=== PATIENT | female | born 2000 | race Caucasian/White ===

== ENCOUNTER → 2025-02-14 09:50 | Outpatient (BNV) | payer OTHER, SELFPAY ==
--- NOTE | 2025-02-14 09:50 | A.OFFVIS_ITS ---
Intake Visit Reasons: Amb Documentation Allergies No Known Allergies Allergy (Verified 02/14/25 10:12) HPI Comments Details: student is coming in because she's been off depo for 1.5 years. she would like to go back on it but isn't in a hurry. she has a regular partner (the baby's father). He uses withdrawal and this has worked for them, so she refuses plan b (last had sex 'maybe' last night)...she states that they have sex 'not often' and is ok waiting for her period but Azalia her counselor will try and see if this can happen sooner so I will put the rx and the blood test order in She has no PCP (baby goes to [facility]) and goes to for delivery and ob-care - this is also an option to have azalia work to get her seen there for this first shot since this office may be closed for 2 weeks. she has no allergies and no significant medical history FMH: she is unclear why wasn't raised by her mother but by her [facility] [place] [place] w/ her baby. [facility] [place] health - diabetes and arthritis has a brother and a sister in good health, parents helath is unknown - 2 year old daughter is in good health No etoh, no cig, smokes cannabis for sleep most nights INSURANCE - she was put on alyson by [employer] and [facility]cu to find a provider in this area - azalia will work w/ her to change insurance and find pcp in this area - suggested [facility] Medical History Not proficient in Sudanese language History of unprotected sex Family History (Updated 02/14/25 @ 09:58 by DANG Triplett) Mother Family history unknown Father Family history unknown Maternal Grandmother Diabetes Arthritis Sister No problems noted. Brother No problems noted. Daughter No problems noted. Review of Systems Const Details: Counseling visit: All systems reviewed & are unremarkable except as noted in HPI and below Reports as per HPI Resp Reports as per HPI GI Reports as per HPI Musc Reports as per HPI Neuro Reports as per HPI Psych Reports as per HPI Physical Exam Const General: cooperative, healthy appearing and no acute distress Nutritional Appearance: well nourished Orientation/consciousness: oriented to person Limitations: no limitations HEENT Other: wnl Eyes Other: wnl Chest Other: easy breathing Resp Effort & Inspection: able to speak in complete sentences Skin Other: normal in appearance Neuro General: oriented to person Psych Other: see HPI Mental Status: mental status grossly normal Speech and movement: Clear speech present Attitude: cooperative Thought process: Normal thought process present Assessment & Plan Assessment & Plan (1) History of unprotected sex: Code(s): Z72.51 - High risk heterosexual behavior Category: Social Hx (2) control counseling: Code(s): Z30.09 - Encounter for other general counseling and advice on contraception Category: Medical (3) Counseling and coordination of care: Code(s): Z71.89 - Other specified counseling Category: Medical (4) Not proficient in Sudanese language: Code(s): Z78.9 - Other specified health status Category: Social Hx Plan onsite counselor will help client change [facility] to something locally accepted and will help her get to primary care. she will get blood test done and help her bean picker machine operator depo and will either have the covering nurse practitoner administer or will arrange for her to get this done Orders: Orders HCG Quantitative Today Z72.51 - High risk heterosexual behavior Medications: New medroxyprogesterone (Depo-Provera) 150 mg IM [id number] 1 mL 6RF Coding Level of Care Code New Pt Level 5 (97354) Diagnoses History of unprotected sex Z72.51 control counseling Z30. Counseling and coordination of care Z71.89 Not proficient in Sudanese language Z78.9 Additional Codes PHQ-9 - 02911 - PHQ-9 Billing: Yes ([id number]) Time Spent (min) 65 Comment extensive counseling and coord of care w/ onsite counselor CRAFFT Screening Tool PART A: In the PAST 12 MONTHS, did you: Drink any alcohol (more than few sips)? (Do not count sips of alcohol taken during family or taoist events.): No Smoke any marijuana or hashish?: No Use anything else to get high? (includes illegal drugs, over the counter/prescription drugs, or things that you sniff/bojorquez?): No PHQ-9 Over the last 2 weeks, how often have you been bothered by any of the following problems? 1. Little interest or pleasure in doing things: not at all 2. Feeling down, depressed, or hopeless: not at all 3. Trouble falling or staying asleep, or sleeping too much: not at all 4. Feeling tired or having little energy: several days 5. Poor appetite or overeating: not at all 6. Feeling bad about yourself - or that you are a failure or have let yourself or your family down: not at all 7. Trouble concentrating on things, such as reading the newspaper or watching television: not at all 8. Moving or speaking so slowly that other people could have noticed. Or the opposite - being so fidgety or restless that you have been moving around a lot more than usual: not at all 9. Thoughts that you would be better off or of hurting yourself in some way: not at all Total score: 1 Depression Screening Interpretation: Negative Depression Screening Done: Yes 47369 - PHQ-9 Billing: Yes Source: Developed by Drs. Joe Dacosta, Delmis Campbell, Jacob Ontiveros and colleagues, with an educational familia from [employer]
== END ==
PROVIDERS: PCP Pediatrics; Visit Provider Nurse Practitioner Family
DX: Z72.51 High risk heterosexual behavior (principal); Z30.09 Encounter for other general counseling and advice on contraception; Z71.89 Other specified counseling; Z78.9 Other specified health status
CPT/HCPCS: 96127; 99205

== ENCOUNTER 2025-03-01 12:07 | Outpatient (REF) | payer OTHER, SELFPAY ==
--- OUTSIDE RECORDS SUMMARY | 2025-03-01 13:09 | XMS_ITS | Clinical Summary ---
Author Organization [facility] Address [address] [place] [id number] Phone Care Team Providers Care Museum Exhibit Technician Name Role Phone Loli Jackson MD Primary Care Provider Unavailabl e Immunizations Immunization Administration Dates Next Due DTaP 5 02/22/2007, 4,01/26/2003,2002, 3 Hep B, ped/adol 05/04/2003,01/26/2003,2002 Hib (PRP-T) 11/22/2003,01/26/2003,2002 ,2002 IPV 02/22/2007,05/04/2003,2002 ,2002 MMR 02/22/2007,09/11/2003 Pneumococcal Conjugate 07/31/2004,01/26/2003,11/2002,2002 Varicella 03/31/2007,09/11/2003 Social History Tobacco Use Types Packs/Day Years Used Date Smoking Tobacco: Never Assessed Comments Unknown Sex and Gender Information Value Date Recorded Sex Assigned at Not on file Legal Sex Female 4:25 PM EDT Gender Identity Not on file Sexual Orientation Not on file Plan of Treatment Health Maintenance Due Date Last Done Comments DTaP,Tdap,and Td Vaccines (6 - Tdap) 2013 02/22/2007, 02/20/2004, 01/26/2003, Additional history exists HPV Vaccines (1 - 3-dose series) 2017 Men B Vaccine (1 of 2 - Standard) 2018 COVID-19 Vaccine (1 - 2023- season) 2024 Influenza Vaccines (#1) 2025 Hepatitis B Vaccines Completed 05/04/2003, 01/26/2003, 2002 HIB Vaccines Completed 11/22/2003, 01/03, 2002, Additional history exists Pneumococcal Vaccine Completed 07/31/2004, 01/26/2003, 2002, Additional history exists IPV Vaccines Completed 02/22/2007, 04/06, 2002, Additional history exists MMR Vaccines Completed 02/22/2007, 09/11/2003 Varicella Vaccines Completed 03/31/2007, 09/11/2003 Hepatitis A Vaccines Aged Out No long er eligible based on patient's age to complete this topic Meningococcal Vaccine Aged Out No savannah david eligible based on patient's age to complete this topic Care Teams Museum Exhibit Technician Relationship Specialty Start Date End Date Loli Jackson MD PCP - General 02/12/17
--- OUTSIDE RECORDS SUMMARY | 2025-03-01 13:09 | XMS_ITS | Encounter Summary ---
Author Organization [facility] Address [address] [place] [address] Phone Care Team Providers Care Truck Farmer Name Role Phone Loli Jackson MD Primary Care Provider Unavailabl e Encounter Details Date Type Department Care Team (Late st Contact Info) Description 02/18/2017 Conversion Encounter [facility] - [address] [address] Social History Tobacco Use Types Packs/Day Years Used Date Smoking Tobacco: Never Assessed Comments Unknown Sex and Gender Information Value Date Recorded Sex Assigned at Not on file Legal Sex Female 4:25 PM EDT Gender Identity Not on file Sexual Orientation Not on file documented as of this encounter Plan of Treatment Not on file documented as of this encounter Visit Diagnoses Not on filedocumented in this encounter Care Teams Truck Farmer Relationship Specialty Start Date End Date Loli Jackson MD PCP - General 02/12/17 documented as of this encounter
== END 2025-03-01 12:08 | disposition home or self-care (01) ==
LOC: HO.LAB 12:07
PROVIDERS: Visit Provider Nurse Practitioner Family
DX: Z72.51 High risk heterosexual behavior (principal)
CPT/HCPCS: 36415; 84702

== ENCOUNTER → 2025-03-07 09:10 | Outpatient (BNV) | payer OTHER, SELFPAY ==
--- NOTE | 2025-03-07 09:29 | MHC.OFFVIS ---
Intake Visit Reasons: Amb Documentation Allergies No Known Allergies Allergy (Verified 02/14/25 10:12) HPI Comments Details: student states had blood test done before weekend - (depo not picked up - misunderstanding). blood test is negative, she is happy to hear. alina calvo (counselor) went and picked up depo and it was administered by this provider. negative urine test and states no sex since she last saw this provider, but urine test was done to be sure story was fully accurate. depo administered in left deltoid w/o problem. reviewed protection for 1 week (not on period and had no period since she was checked previously). she is very anxious to prevent . DEPO [id number], STEFFANY [id number] left deltoid due 05/24/25 told her november go to alina to start the whole process again so can avoid blood test alina informed as well [facility] Medical History Family planning, Depo-Provera contraception monitoring/administration Not proficient in Icelandic language History of unprotected sex Family History Mother Family history unknown Father Family history unknown Maternal Grandmother Diabetes Arthritis Sister No problems noted. Brother No problems noted. Daughter No problems noted. Review of Systems Const Details: Counseling visit: All systems reviewed & are unremarkable except as noted in HPI and below Reports as per HPI Resp Reports as per HPI GI Reports as per HPI Musc Reports as per HPI Neuro Reports as per HPI Psych Reports as per HPI Physical Exam Const General: cooperative, healthy appearing and no acute distress Nutritional Appearance: well nourished Orientation/consciousness: oriented to person Limitations: no limitations HEENT Other: wnl Eyes Other: wnl Chest Other: easy breathing Resp Effort & Inspection: able to speak in complete sentences Skin Other: normal in appearance Neuro General: oriented to person Psych Other: see HPI Appearance: grossly normal Mental Status: mental status grossly normal Speech and movement: Clear speech present Attitude: cooperative Thought process: Normal thought process present Assessment & Plan Assessment & Plan (1) Irregular menses: Code(s): N92.6 - Irregular menstruation, unspecified Category: Medical (2) Family planning, Depo-Provera contraception monitoring/administration: Code(s): Z30.42 - Encounter for surveillance of injectable contraceptive Category: Medical (3) Not proficient in Icelandic language: Code(s): Z78.9 - Other specified health status Category: Social Hx (4) Counseling and coordination of care: Code(s): Z71.89 - Other specified counseling Category: Medical (5) control counseling: Code(s): Z30.09 - Encounter for other general counseling and advice on contraception Category: Medical Plan depo administered see hpi, counselor informed about refill and will help her stay on top of it Orders: Orders AMB HCG Urine Test Today N92.6 - Irregular menstruation, unspecified, Z32.02 - Encounter for test, result negative Coding Level of Care Code Est Pt Level 3 (27713) Diagnoses Irregular menses N92.6 Family planning, Depo-Provera contraception monitoring/administration Z30.42 Not proficient in Icelandic language Z78.9 Counseling and coordination of care Z71.89 control counseling Z30.09 Time Spent (min) 35 Comment counseling/coord care
== END ==
PROVIDERS: PCP Pediatrics; Visit Provider Nurse Practitioner Family
DX: N92.6 Irregular menstruation, unspecified (principal); Z30.42 Encounter for surveillance of injectable contraceptive; Z78.9 Other specified health status; Z71.89 Other specified counseling; Z30.09 Encounter for other general counseling and advice on contraception
CPT/HCPCS: 99213

== ENCOUNTER 2025-03-15 09:34 | Outpatient (AMB) | payer OTHER, SELFPAY ==
--- NOTE | 2025-03-15 09:50 | A.OFFPC_ITS ---
Vital Signs 03/15/25 09:51 Height 5 ft 1.81 in Weight 115 lb 4 oz BMI 21.2 BP 110/68 Blood Pressure Location Rt brachial Position Sitting Pulse 74 Pulse Source Pulse Oximeter Temp 97.1 F Temp Source Temporal Artery Scan Pulse Oximetry (%) 92 Oxygen Delivery Method Room Air Intake Visit Reasons: PHYSICAL NEW PATIENT Intake Note: Patient is a new patient here to establish care for Wellness visit. Transferring care from [facility]. Medical records have been requested and have not received. Publisher Assistant Required: No Securities Adviser: Not Required per policy Accompanied by: Self / Same As Patient Allergies No Known Allergies Allergy (Verified 03/15/25 09:51) Medication List - Last Reconciled 03/15/25 by Katie Henley MD medroxyprogesterone (Depo-Provera) 150 mg IM [id number] Tobacco use date assessed: 03/15/25 Dental Screening Dental Screen Date: 03/15/25 Did you have a dental visit in the last 12 months?: Yes Did you have a dental problem in the last 6 months where you did not have access to dental care?: No Was dental information given to patient?: Patient has dentist HPI HPI Comments History of Present Illness Details The patient is a 24-year-old female presenting with a routine check-up and preventative care. She reports no current symptoms such as dyspnea, chest pain, headaches, abdominal pain, or changes in bowel or urinary habits. The patient has been using Depo-Provera as a contraceptive method. In 2021, the patient experienced a infection following the of her child, which was treated with antibiotics. She reports no ongoing symptoms or complications from this infection. The patient occasionally uses marijuana to aid sleep but denies any dependency or use of other substances. She does not consume alcohol. [facility] Medical History Family planning, Depo-Provera contraception monitoring/administration Not proficient in Maori language History of unprotected sex Surgical History (Updated 03/15/25 @ 09:56 by ANNE Wu) No pertinent past surgical history Family History (Updated 03/15/25 @ 09:50 by ANNE Wu) Mother Family history unknown Father Family history unknown Maternal Grandmother Diabetes Arthritis Sister No problems noted. Brother No problems noted. Daughter No problems noted. Social History (Updated 03/15/25 @ 09:50 by ALFA Wu Housing: Apartment Alcohol intake: never Patient Tobacco Use Status: Never used Tobacco e-Cigarette/Vaping Use: Never Used Second Hand Smoke Exposure: No service: No Current occupational status: student Cognitive needs: No Hearing needs: No Vision needs: No Questionnaire PHQ-9 Over the last 2 weeks, how often have you been bothered by any of the following problems? 1. Little interest or pleasure in doing things: not at all 2. Feeling down, depressed, or hopeless: not at all 3. Trouble falling or staying asleep, or sleeping too much: not at all 4. Feeling tired or having little energy: not at all 5. Poor appetite or overeating: not at all 6. Feeling bad about yourself - or that you are a failure or have let yourself or your family down: not at all 7. Trouble concentrating on things, such as reading the newspaper or watching television: not at all 8. Moving or speaking so slowly that other people could have noticed. Or the opposite - being so fidgety or restless that you have been moving around a lot more than usual: not at all 9. Thoughts that you would be better off or of hurting yourself in some way: not at all Total score: 0 Depression Screening Interpretation: Negative Depression Screening Done: Yes Source: Developed by Drs. Joe Dacosta, Delmis Campbell, Jacob Ontiveros and colleagues, with an educational familia from [employer]. Thrive Questionnaire Date Thrive assessed: 03/15/25 I am a: Patient What is your living situation today?: I have a steady place to live Within the past 12 months, did the food you bought not last and you didn't have the money to get more?: Never true Within the past 12 months, did you worry whether your food would run out before you got money to buy more?: Never true Do you have trouble paying for medicines?: No Do you have trouble getting transportation to medical appointments?: No Do you have trouble paying your heating and electricity bill?: No Do you have trouble taking care of your child, family member or friend?: No Do you have trouble with day-to-day activities such as bathing, preparing meals, shopping, managing finances, etc.?: No Are you currently unemployed and looking for a job?: No Are you interested in more education?: No Please select the resources that you would like help with: None Currently or been in a relationship where the following occur: No concerns reported THRIVE Score: 0 AUDIT C Alcohol Use Questionnaire (AUDIT-C) 1. How often do you have a drink containing alcohol?: Never Total Score: 0 FADIA-7 AMB Questionnaire FADIA-7 Date FADIA - 7 assessed: 03/15/25 Feeling nervous, anxious, or on edge: 0 = Not at all Not being able to stop or control worryin = Not at all Worrying too much about different things: 0 = Not at all Trouble relaxin = Not at all Being so restless that it is hard to sit still: 0 = Not at all Becoming easily annoyed or irritable: 0 = Not at all Feeling afraid as if something awful might happen: 0 = Not at all Total FADIA-7 score (0-4 normal; 5-9 mild; 10-14 moderate; 15-21 severe): 0 Source: Developed by Drs. Joe Dacosta, Delmis Campbell, Jacob Ontiveros and colleagues, with an educational familia from [employer]. Review of Systems Const Details: Positives besides what was mentioned in HPI are in BOLD Constitutional: No Weight Change, No Fever, No Chills, No Night Sweats, No Fatigue, No Malaise ENT/Mouth: No Hearing Changes, No Ear Pain, No Nasal Congestion, No Sinus Pain, No Hoarseness, No sore throat, No Rhinorrhea, No Swallowing Difficulty Eyes: No Eye Pain, No Swelling, No Redness, No Foreign Body, No Discharge, No Vision Changes Cardiovascular: No Chest Pain, No SOB, No PND, No Dyspnea on Exertion, No Orthopnea, No Claudication, No Edema, No Palpitations Respiratory: No Cough, No Sputum, No Wheezing, No Smoke Exposure, No Dyspnea Gastrointestinal: No Nausea, No Vomiting, No Diarrhea, No Constipation, No Pain, No Heartburn, No Anorexia, No Dysphagia, No Hematochezia, No Melena, No Flatulence, No Jaundice Genitourinary: No Dysmenorrhea, No DUB, No Dyspareunia, No Dysuria, No Urinary Frequency, No Hematuria, No Urinary Incontinence, No Urgency, No Flank Pain, No Urinary Flow Changes, No Hesitancy Musculoskeletal: No Arthralgias, No Myalgias, No Joint Swelling, No Joint Stiffness, No Back Pain, No Neck Pain, No Injury History Skin: No Skin Lesions, No Pruritis, No Hair Changes, No Breast/Skin Changes, No Nipple Discharge Neuro: No Weakness, No Numbness, No Paresthesias, No Loss of Consciousness, No Syncope, No Dizziness, No Headache, No Coordination Changes, No Recent Falls Psych: No Anxiety/Panic, No Depression, No Insomnia, No Personality Changes, No Delusions, No Rumination, No SI/HI/AH/VH, No Social Issues, No Memory Changes, No Violence/Abuse Hx., No Eating Concerns Heme/Lymph: No Bruising, No Bleeding, No Transfusions History, No Lymphadenopathy Endocrine: No Polyuria, No Polydipsia, No Temperature Intolerance Physical exam (Primary Care) Vital Signs: Last Vital Signs Temp 97.1 F 03/15/25 09:51 Pulse 74 03/15/25 09:51 BP 110/68 03/15/25 09:51 Pulse Ox 92 03/15/25 09:51 Oxygen Delivery Method Room Air 03/15/25 09:51 BMI result Body Mass Index 21.2 Tobacco/Smoking Status: Tobacco use Status Tobacco use date assessed 03/15/25 03/15/25 09:57 Patient Tobacco Use Status Never used Tobacco 03/15/25 09:57 e-Cigarette/Vaping Use Never Used 03/15/25 09:57 PHQ-9: PHQ-9 Score PHQ-9: Total score 0 03/15/25 09:51 Depression Screening Interpretation: Negative Thrive Assessment: Date of Thrive Assessment Date Thrive assessed 03/15/25 03/15/25 09:51 Currently or been in a relationship where the following occur: No concerns reported Const Other: Pertinent findings are in BOLD GENERAL APPEARANCE NAD, activity normal for age, well developed/ well nourished, no cyanosis, pallor, or diaphoresis. EYES lids/conjunctiva normal. EARS/NOSE/THROAT Mucous membranes moist, nares normal, lips/teeth normal uvula midline without oral pharyngeal erythema, exudate or swelling TMs normal bilaterally. No lymphangitis/lymphedema. HEAD/NECK normocephalic atraumatic, no facial trauma, neck is supple. RESPIRATORY respiratory effort normal, speaks in full sentences, no tripod position, no accessory muscle use. Lungs clear to auscultation without rhonchi, wheezes, rales CARDIAC Regular rate and rhythm, no edema. ABDOMINAL Soft, ND/NT. No evidence of fluid wave. No pulsatile masses on exam, rebound tenderness, Fernández sign or pain over Mcburney's point. MUSCLES/EXTREMITIES No abnormal range of motion, no swelling. SKIN Warm, pink and dry. No rashes, dermatoses, petechiae or lesions. NEUROLOGICAL Speech is clear and appropriate. Normal level of consciousness. Gait and coordination are normal. 5/5 strength in all extremities. PSYCH Normal mood and affect. Judgement/competence is appropriate Coding Level of Care Code New Pt Level 3 (52771) Diagnoses Women's annual routine gynecological examination Z01.419 Irregular menses N92.6 Marijuana smoker F12.90 control counseling Z30. Assessment & Plan Assessment & Plan (1) Women's annual routine gynecological examination: Code(s): Z01.419 - Encounter for gynecological examination (general) (routine) without abnormal findings Category: Medical Plan: INFECTION PREVENTION COORDINATOR referral placed. Patient did not have previous pap smear. (2) Irregular menses: Code(s): N92.6 - Irregular menstruation, unspecified Category: Medical Plan: Patient has Depo - Provera which she has been tolerating well. She currently has no menstrual cycles. INFECTION PREVENTION COORDINATOR referral. (3) Marijuana smoker: Code(s): F12.90 - Cannabis use, unspecified, uncomplicated Category: Medical Plan: Advised on abstinence. No signs or symptoms of dependence at the moment. Use limited to few times per week to help her sleep. (4) control counseling: Code(s): Z30.09 - Encounter for other general counseling and advice on contraception Category: Medical Plan: INFECTION PREVENTION COORDINATOR referral. Plan During the visit, I discussed the importance of routine preventative care, including the need for a Pap smear to screen for cervical changes. We also reviewed her current contraceptive method, Depo-Provera, and its common side effects such as amenorrhea. I advised the patient to obtain her vaccination records for review and to follow up with the PHYSICAL MEDICINE TEACHER for further management.
[2025-03-15 09:51] VITALS: BP 110/68; PULSE 74; TEMP 36.2; O2SAT 92; BMI 21.2
--- OUTSIDE RECORDS SUMMARY | 2025-03-15 11:11 | XMS_ITS | Encounter Summary ---
Author Organization [facility] Address [address] [place] [address] Phone Care Team Providers Care Repairer Pump Name Role Phone Loli Jackson MD Primary Care Provider Unavailabl e Encounter Details Date Type Department Care Team (Late st Contact Info) Description 02/18/2017 Conversion Encounter [facility] - [address] [id number] Social History Tobacco Use Types Packs/Day Years [...] on filedocumented in this encounter Care Teams Repairer Pump Relationship Specialty Start Date End Date Loli Jackson MD PCP - General 02/12/17 documented as of this encounter
--- OUTSIDE RECORDS SUMMARY | 2025-03-15 11:11 | XMS_ITS | Clinical Summary ---
Author Organization [facility] Address [address] [place] [id number] Phone Care Team Providers Care Social Worker Delinquency Prevention Name Role Phone Loli Jackson MD Primary [...] Vaccine (1 of 2 - Standard) 2018 Influenza Vaccines (#1) 2025 COVID-19 Vaccine ( - season) 2025 Hepatitis B Vaccines Completed 05/04/2003, 01/26/2003, [...] age to complete this topic Care Teams Social Worker Delinquency Prevention Relationship Specialty Start Date End Date Loli Jackson MD PCP - General 02/12/17
== END 2025-03-15 10:15 | disposition home or self-care (01) ==
PROVIDERS: PCP Internal Medicine; Visit Provider Internal Medicine
DX: Z01.419 Encounter for gynecological examination (general) (routine) without abnormal findings (principal); N92.6 Irregular menstruation, unspecified; F12.90 Cannabis use, unspecified, uncomplicated; Z30.09 Encounter for other general counseling and advice on contraception

== ENCOUNTER → 2025-03-15 09:34 | Outpatient (BNVA) | payer OTHER, SELFPAY | PROVIDERS: Visit Provider Internal Medicine | DX: Z01.419 Encounter for gynecological examination (general) (routine) without abnormal findings (principal); N92.6 Irregular menstruation, unspecified; F12.90 Cannabis use, unspecified, uncomplicated; Z79.3 Long term (current) use of hormonal contraceptives | CPT/HCPCS: 99202 ==

== ENCOUNTER → 2025-05-28 10:12 | Outpatient (BNV) | payer OTHER, SELFPAY ==
--- NOTE | 2025-05-28 10:12 | MHC.OFFVIS ---
Intake Visit Reasons: Amb Documentation Allergies No Known Allergies Allergy (Verified 03/15/25 09:51) HPI Comments Details: stduent here for depo - previous arrnagements made to get [facility] - [facility] never notified her. Rx is gotten and brought to or - urine hcg negative. she states that she has some spotting x 2 weeks - had been on depo before but had a long gap so last time was her first shot in a while. she is not bothered terribly by this - reassured that it usually gets better depo was given in her left deltoid w/o issue due again Aug 12 [facility] Medical History Health maintenance examination Family planning, Depo-Provera contraception monitoring/administration Not proficient in [place]ese language History of unprotected sex Surgical History No pertinent past surgical history Family History Mother Family history unknown Father Family history unknown Maternal Grandmother Diabetes Arthritis Sister No problems noted. Brother No problems noted. Daughter No problems noted. Social History Housing: Apartment Alcohol intake: never Patient Tobacco Use Status: Never used Tobacco e-Cigarette/Vaping Use: Never Used Second Hand Smoke Exposure: No service: No Current occupational status: student Cognitive needs: No Hearing needs: No Vision needs: No Review of Systems Const All systems reviewed & are unremarkable except as noted in HPI and below Reports as per HPI Resp Reports as per HPI GI Reports as per HPI Musc Reports as per HPI Neuro Reports as per HPI Psych Reports as per HPI Physical Exam Const General: cooperative, healthy appearing and no acute distress Nutritional Appearance: well nourished Orientation/consciousness: oriented to person Limitations: no limitations HEENT Other: wnl Eyes Other: wnl Chest Other: easy breathing Resp Effort & Inspection: able to speak in complete sentences Skin Other: normal in appearance Neuro General: oriented to person Psych Other: see HPI Mental Status: mental status grossly normal Speech and movement: Clear speech present Attitude: cooperative Thought process: Normal thought process present Assessment & Plan Assessment & Plan (1) control counseling: Code(s): Z30.09 - Encounter for other general counseling and advice on contraception Category: Medical Plan: Depo was readministered today in left deltoid. [id number] 06/30 due 08/12/25. Written admnistration down in case she moves away from this area (2) Counseling and coordination of care: Code(s): Z71.89 - Other specified counseling Category: Medical (3) Not proficient in [place]ese language: Code(s): Z78.9 - Other specified health status Category: Social Hx (4) Family planning, Depo-Provera contraception monitoring/administration: Code(s): Z30.42 - Encounter for surveillance of injectable contraceptive Category: Medical Plan took a lot of coordination of care to get student assist in getting rx picked up and brought in . Orders: Orders AMB HCG Urine Test Today N92.6 - Irregular menstruation, unspecified, Z32.02 - Encounter for test, result negative Coding Level of Care Code Est Pt Level 3 (10452) Diagnoses control counseling Z30.09 Counseling and coordination of care Z71.89 Not proficient in [place]ese language Z78.9 Family planning, Depo-Provera contraception monitoring/administration Z30.42 Time Spent (min) 25 Comment counseling and coord care
== END ==
PROVIDERS: PCP Internal Medicine; Visit Provider Nurse Practitioner Family
DX: Z30.09 Encounter for other general counseling and advice on contraception (principal); Z71.89 Other specified counseling; Z78.9 Other specified health status; Z30.42 Encounter for surveillance of injectable contraceptive
CPT/HCPCS: 99213